=== PATIENT | male | born 1965 | race Caucasian/White ===

== ENCOUNTER 2024-08-25 08:03 | Day surgery (SDC) | payer BC, OTHER ==
[2024-08-25] MEDS ORDERED: Midazolam 1 MG/ML 2 ML SDV ONE (08:29)
[2024-08-25] MEDS ORDERED: fentaNYL 50 MCG/ML SDV ONE (08:29)
[2024-08-25] MEDS ORDERED: Propofol 200 MG/20 ML SDV ONE (08:29)
[2024-08-25] MEDS: Sodium Chloride 0.9% 1,000 ML IV SCH (08:55)
== END 2024-08-25 11:05 | disposition home or self-care (01) ==
LOC: JP.SDS 08:03
PROVIDERS: ATTEND Surgery
DX: Z12.11 Encounter for screening for malignant neoplasm of colon (principal); D12.3 Benign neoplasm of transverse colon; D12.4 Benign neoplasm of descending colon; K21.00 Gastro-esophageal reflux disease with esophagitis, without bleeding
CPT/HCPCS: 00813; 43239; 45385; J2250; J2704; J3010; J7030; 88305